=== PATIENT | female | born 1965 | race Hispanic/Latino ===

== ENCOUNTER 2017-10-07 06:14 | Day surgery (SDC) | payer MEDICARE ==
[~2017-10-07] VITALS: Ht 162.6 cm; Wt 60.3 kg
[~2017-10-07 06:14] MED LIST: CARV12.511 PO; CINA30 PO; FOLI0.8T22 PO; HYDR-4154 PO
[2017-10-07] MEDS ORDERED: SODIUM CHLORIDE 0.9% 1000ML 1,000 ML IV ONE (06:45)
[2017-10-07 06:50] VITALS: BP 145/85
[2017-10-07] MEDS ORDERED: PROPOFOL 10 MG/ML 20ML VIAL IV ONE ×2 (08:02→08:18)
== END 2017-10-07 08:55 | disposition home or self-care (01) ==
LOC: DAH 06:14
PROVIDERS: ATTEND Internal Medicine Gastroenterology
DX: Z12.11 Encounter for screening for malignant neoplasm of colon (principal); K64.8 Other hemorrhoids; E11.9 Type 2 diabetes mellitus without complications; Z79.899 Other long term (current) drug therapy
CPT/HCPCS: A4606; G0121; J2704 ×2; J7030

== ENCOUNTER 2021-02-06 08:52 | Day surgery (SDC) | payer MEDICARE ==
[~2021-02-06] VITALS: Ht 157.5 cm; Wt 53.0 kg
[~2021-02-06 08:52] MED LIST changes: +0.9%NACL 1000ML 1,000 ML IV ONE; +ACET-2743 PO; -CARV12.511 PO; +CARV25TA PO; -CINA30 PO; -FOLI0.8T22 PO; +SACU1TAB PO; +[UNRECOGNIZED DRUG - OTHER] PO
[2021-02-06 09:15] VITALS: BP 128/68
[2021-02-06 10:18] VITALS: BP 108/63
[2021-02-06] MEDS ORDERED: PROPOFOL 10 MG/ML 20ML VIAL IV ONE (10:34)
[2021-02-06 10:51] VITALS: BP 101/62
[2021-02-06 11:00] VITALS: BP 95/56
[2021-02-06 11:15] VITALS: BP 98/56
== END 2021-02-06 11:15 | disposition home or self-care (01) ==
LOC: ENDO 08:52 → DAH 08:52 → ENDO 11:15
PROVIDERS: ATTEND Internal Medicine Gastroenterology
DX: K92.1 Melena (principal); Z20.822 Contact with and (suspected) exposure to COVID-19; K63.5 Polyp of colon; K64.0 First degree hemorrhoids; R19.4 Change in bowel habit; K57.30 Diverticulosis of large intestine without perforation or abscess without bleeding; F41.9 Anxiety disorder, unspecified; F32.9 Major depressive disorder, single episode, unspecified; I12.0 Hypertensive chronic kidney disease with stage 5 chronic kidney disease or end stage renal disease; N18.6 End stage renal disease; Z99.2 Dependence on renal dialysis; Z90.710 Acquired absence of both cervix and uterus
CPT/HCPCS: 36415; 45385; 84132; 87635; 88305; A4606; C9803; J2704; J7030

== ENCOUNTER → 2022-03-14 | Outpatient (CLI) | payer MEDICARE ==
[~2022-03-14] MED LIST changes: -0.9%NACL 1000ML 1,000 ML IV ONE
== END | disposition home or self-care (01) ==
LOC: RAH 09:12
PROVIDERS: ATTEND Internal Medicine Nephrology
DX: M99.05 Segmental and somatic dysfunction of pelvic region (principal); M67.959 Unspecified disorder of synovium and tendon, unspecified thigh; M54.51 Vertebrogenic low back pain
CPT/HCPCS: 72114

== ENCOUNTER → 2022-06-04 | Outpatient (CLI) | payer MEDICARE ==
[~2022-06-04] MED LIST changes: +REGADENOSON 0.4 MG/5 ML PF SYG IVP SCH
== END | disposition home or self-care (01) ==
LOC: RAH 10:33
PROVIDERS: ATTEND Internal Medicine Cardiovascular Disease
DX: I20.9 Angina pectoris, unspecified (principal)
CPT/HCPCS: 78452; 96374; 93017; J2785; A9500 ×2

== ENCOUNTER → 2022-06-11 | Outpatient (CLI) | payer MEDICARE ==
[~2022-06-11] MED LIST changes: -REGADENOSON 0.4 MG/5 ML PF SYG IVP SCH
== END | disposition home or self-care (01) ==
LOC: RAH 14:18
PROVIDERS: ATTEND Internal Medicine Gastroenterology
DX: N26.1 Atrophy of kidney (terminal) (principal); R16.1 Splenomegaly, not elsewhere classified; K82.9 Disease of gallbladder, unspecified; N28.1 Cyst of kidney, acquired
CPT/HCPCS: 74150